=== PATIENT | female | born 1955 | race Caucasian/White ===

== ENCOUNTER 2022-10-24 15:01 | Emergency (ER) | payer MEDICARE, SELFPAY ==
--- NOTE | 2022-10-24 15:35 | XR_ITS ---
WS: [id number] Chest 2 views, 10/24/2022 Clinical Data: shortness of breath Comparison: Two-view chest, 12/01/2006. Findings: No nodules, masses or effusions are seen. The heart is normal. The pulmonary vascularity is not increased. No pneumonia or pneumothorax is seen. The aortic arch shows mild tortuosity. The diap hragms are flattened. XR/XR chest 2V* [id number] Impression: Atherosclerosis and hyperinflation.
[2022-10-24 17:05] VITALS: BP 146/75; PULSE 72; RESP 19; TEMP 36.4; O2SAT 97; BMI 21.9
--- NOTE | 2022-10-24 17:17 | ED_ITS ---
HPI - General Adult General: Chief complaint: General Medical Stated complaint: SOB Time Seen by Provider: 10/24/22 16:27 History of Present Illness: Patient is a 67-year-old female comes to the ED with cough and wheezing. She has been having symptoms now for close to a month. She has a history of asthma and uses an albuterol inhaler. She states that she has been having to use her albuterol inhaler about 4 times a day. She is been complaining of cough, wheezing and nasal congestion and drainage. She has not been on any antibiotics or steroids recently. Associated symptoms: Reports dyspnea; Deny chest pain, headache(s), nausea, rash, palpitations or vomiting Review of Systems Const: Denies: fever(s), chills or fatigue Eyes: Denies: change in vision or eye discomfort ENMT: Denies: throat pain, odynophagia, nasal discharge or nasal congestion Card: Denies: chest pain, palpitations, edema, swelling of feet/ankles, dyspnea on exertion or orthopnea Resp: Reports: dyspnea, non-productive cough and wheezing; Denies: productive cough GI: Denies: abdominal pain, nausea, vomiting, diarrhea, constipation or hematochezia : Denies: flank pain, dysuria or hematuria Musc: Denies: neck pain, back pain or extremity swelling Skin/Breast: Denies: rash or new lesions Neuro: Denies: headache(s), numbness in extremities or weakness in extremities PFS ED PFSH: Medical History No pertinent family history Surgical History No pertinent past surgical history Physical Exam Const: COMMON NORMALS: patient oriented x3, healthy appearing and alert GENERAL APPEARANCE: cooperative and comfortable HENMT: COMMON NORMALS: normocephalic HEAD & SCALP: normocephalic MOUTH: Normal oral and palatal mucosa present THROAT: posterior oropharynx normal and uvula midline Neck/C-Spine: COMMON NORMALS: supple GENERAL: Yes normal visual inspection Resp: COMMON NORMALS: normal respiratory effort, No retractions and No use of accessory muscles AUSCULTATION: wheezes expiratory wheezes and throughout Cardio: COMMON NORMALS: regular rate, regular rhythm, S1 normal heart sound present, S2 normal heart sound present, No gallops present (Cardio), No clicks present (Cardio), No murmurs present (Cardio) and Peripheral pulses 2+ throughout RATE: regular rate RHYTHM: regular rhythm HEART SOUNDS: S1 normal heart sound present and S2 normal heart sound present PERIPHERAL PULSES: Peripheral pulses 2+ throughout GI: COMMON NORMALS: Normal to inspection, nondistended, normoactive bowel sounds present, Soft to palpation, non-tender and no masses PALPATION: Yes Soft to palpation : COMMON NORMALS: Yes no CVA tenderness BLADDER/KIDNEY EXAM: Yes no CVA tenderness Back/Pelvis: COMMON NORMALS: no CVA tenderness Extremity: COMMON NORMALS: normal to inspection Neuro: COMMON NORMALS: patient oriented x3 SENSORIUM/ORIENTATION: Yes alert GAIT: Yes Normal gait present Skin: GENERAL SKIN EXAM: dry skin Course Vital Signs: Vital signs: Vital Signs Temperature 97.6 F 10/24/22 17:05 Pulse Rate 65 10/24/22 17:35 Respiratory Rate 18 10/24/22 17:29 Blood Pressure 146/75 10/24/22 17:05 Pulse Oximetry 98 10/24/22 17:29 Oxygen Delivery Me thod 10/24/22 17:29 MDM - General Adult Medical Decision Making Patient is a 67-year-old female comes to the ED with cough and wheezing. She has been having symptoms now for close to a month. She has a history of asthma and uses an albuterol inhaler. She states that she has been having to use her albuterol inhaler about 4 times a day. She is been complaining of cough, wheezing and nasal congestion and drainage. She has not been on any antibiotics or steroids recently. Vitals are stable. Exam of patient shows expiratory wheezing throughout lungs. Rest of exam is benign. Patient appears nontoxic in no acute distress. Chest x-ray showed no acute findings. She was given a dose of Solu-Medrol, doxycycline and DuoNeb breathing treatment here in the ED. she is stable for discharge home and diagnosed with bronchitis. She was sent home with a prescription for budesonide nebulizer solution, doxycycline and Medrol Dosepak. Follow-up with PCP in the next week for reevaluation. Return to ED precautions given. Patient understood and agreed with plan. Lab Data Radiology Impressions Chest X-Ray 10/24/22 15:35 Impression: Atherosclerosis and hyperinflation. Discharge Plan Discharge Patient Disposition: Home Clinical Impression: Bronchitis Condition: Stable Prescriptions: New doxycycline hyclate 100 mg capsule 100 mg PO BID 10 Days Qty: 20 0RF methylprednisolone 4 mg tablets,dose pack See Rx Instructions .ROUTE .COMPLEX Qty: 21 0RF Rx Instructions: orally per package directions budesonide 0.5 mg/2 mL suspension for nebulization 0.5 mg inhalation DAILY Qty: 60 0RF No Action albuterol sulfate 90 mcg/actuation HFA aerosol inhaler See Rx Instructions .ROUTE .COMPLEX Qty: 8.5 0RF Dose Instruction: INHALE 2 TO 6 PUFFS BY MOUTH EVERY 4 HOURS NEEDED FOR SHORTNESS OF BREATH OR WHEEZING Rx Instructions: INHALE 2 TO 6 PUFFS BY MOUTH EVERY 4 HOURS NEEDED FOR SHORTNESS OF BREATH OR WHEEZING Discharge Orders: Discharge ED (Routine); Ordered 10/24/22 Ordered By: Abdullahi Mccarthy Referrals: David Brown, [Primary Care Provider] - Discharge Diet: Regular Discharge Activity: Increase activity as tolerated Patient Instructions: Bronchitis (Acute) - Adult Activity Restrictions/Additional Instructions: Follow-up with medical provider as directed in the next 5 to 7 days for reevaluation. Take medications as prescribed. Return to the ER or your medical provider if condition worsens. Please read and understand discharge instructions. Thank you for choosing [facility] for your healthcare needs today. Please realize this is an emergency room and that we are providing you with a medical screening exam and this may not be complete and all inclusive of all the testing and or work up that you may need to determine your ailment or severity of your illness. It is very important that you follow up as instructed or that you return to the Emergency Department should you have concerns or if your condition changes or worsens in any way. Coding Level of Care Code ED Investigation Division Lieutenant for Marco Mcdermott Exam Comprehensive
[2022-10-24] MEDS: doxycycline 100 mg Tablet PO (17:24)
[2022-10-24] MEDS: ipratropium-albuterol 3 mL Neb 6 ML INHALATION (17:28)
[2022-10-24 17:29] VITALS: PULSE 59; RESP 18; O2SAT 98
[2022-10-24 17:35] VITALS: PULSE 65
== END 2022-10-24 18:08 | disposition home or self-care (01) ==
PROVIDERS: Emergency Provider Physician Assistant; PCP Family Medicine
DX: J40 Bronchitis, not specified as acute or chronic (principal)
CPT/HCPCS: 71046; 94640; 96372; 99284; J2930

== ENCOUNTER → 2023-06-06 16:44 | Outpatient (BNVA) | payer MEDICARE, SELFPAY | PROVIDERS: PCP Clinical Nurse Specialist Adult Health; Visit Provider Nurse Practitioner Family | DX: Z13.6 Encounter for screening for cardiovascular disorders (principal); Z13.29 Encounter for screening for other suspected endocrine disorder | CPT/HCPCS: 80053; 80061; 84443; 85025 ==

== ENCOUNTER → 2024-06-29 15:00 | Outpatient (BNVA) | payer MEDICARE, SELFPAY | PROVIDERS: PCP Clinical Nurse Specialist Adult Health; Visit Provider Nurse Practitioner Family | DX: I10 Essential (primary) hypertension (principal) | CPT/HCPCS: 80053; 80061 ==